=== PATIENT | male | born 1980 | race Caucasian/White ===

== ENCOUNTER 2019-02-13 18:05 | Emergency (ER) | payer BC ==
[~2019-02-13 18:05] MED LIST: Sodium Chloride 0.9% 10 ML Syringe FLUSH PRN
--- NOTE | 2019-02-13 18:06 | EDM.PDOC ---
<[place] - Last Filed: 02/13/19 18:45> ED HPI GENERAL MEDICAL PROBLEM - General Chief Complaint: Abdominal Pain Stated Complaint: RIGHT LOWER QUADRANT PAIN (PV) Time Seen by Provider: 02/13/19 18:05 Source of Information: Reports: Patient, Family (), RN, RN Notes Reviewed History Limitations: Reports: No Limitations - History of Present Illness INITIAL COMMENTS - FREE TEXT/NARRATIVE: Pt presents to ER from home by POV with c/o onset of mild middle to lower abdominal discomfort last evening. Pt states the pain returned today but was intermittent initially, but over the past few hours has localized to the RLQ and become severe. Pt reports feeling feverish, and nauseated. Denies Hx of abdominal surgeries. No relevant PMHx. Denies diarrhea, constipation, dysuria, hematuria, flank pain, or radiating pain. Onset: Today, Gradual Duration: Constant, Getting Worse Location: Reports: Abdomen Quality: Reports: Ache Severity: Severe Improves with: Reports: None Worsens with: Reports: Movement Associated Symptoms: Reports: No Other Symptoms Right Upper Abdomen Pain Score (Numeric/FACES): 8 - Related Data Allergies Allergy/AdvReac Type Severity Reaction Status Date / Time No Known Allergies Allergy Verified 09/28/14 16:57 Past Medical History Musculoskeletal History: Reports: Other (See Below) (Rt elbow injury) Social & Family History - Family History Family Medical History: Noncontributory - Tobacco Use Smoking Status *Q: Current Every Day Smoker Tobacco Use Within Last Twelve Months: Cigarettes - Living Situation & Occupation Living situation: Reports: , with Family Occupation: Employed ED ROS GENERAL - Review of Systems Review Of Systems: ROS reveals no pertinent complaints other than HPI. ED EXAM, GI/ABD - Physical Exam Exam: See Below Exam Limited By: No Limitations General Appearance: Alert, Mild Distress (due to RLQ abdominal pain) Eyes: Bilateral: Normal Appearance (No scleral icterus) Nose: Normal Inspection Throat/Mouth: Normal Lips, Normal Voice, No Airway Compromise Head: Atraumatic, Normocephalic Neck: Normal Inspection Respiratory/Chest: No Respiratory Distress, Lungs Clear, Normal Breath Sounds, No Accessory Muscle Use, Chest Non-Tender Cardiovascular: Regular Rate, Rhythm GI/Abdominal Exam: Normal Bowel Sounds, Soft, No Distention, Guarding, Rebound ( RLQ), Tender (Acutely tender to palpation at RLQ). No: Rigid (Male) Exam: Deferred Rectal (Males) Exam: Deferred Extremities: Normal Inspection Neurological: Alert, Oriented, No Motor/Sensory Deficits Psychiatric: Normal Mood Skin Exam: Warm, Dry, Intact, Normal Color, No Rash Course - Vital Signs Last Recorded V/S: Last Vital Signs Temp 37.4 C 02/13/19 18:15 Pulse 100 02/13/19 18:15 Resp 18 02/13/19 18:15 BP 133/68 02/13/19 18:15 Pulse Ox 100 02/13/19 18:15 - Orders/Labs/Meds Orders: Active Orders 24 hr Category Date Time Status Peripheral IV Care [RC] . DIRECTED Care 02/13/19 18:02 Active Abdomen Pelvis w Cont [CT] Stat Exams 02/13/19 18:43 Taken UA RFX JARRET AND CULT IF INDIC [URIN] Stat Lab 02/13/19 18:02 Ordered Sodium Chloride 0.9% [Saline Flush] Med 02/13/19 18:02 Active 10 ml FLUSH ASDIRECTED PRN Peripheral IV Insertion Adult [OM.PC] Stat Oth 02/13/19 18:02 Ordered Medication Orders Sodium Chloride (Saline Flush) 10 ml FLUSH ASDIRECTED PRN PRN Reason: Keep Vein Open Last Admin: 02/13/19 19:37 Dose: 10 ml Labs: Laboratory Tests 02/13/19 02/13/19 Range/Units 18:11 18:11 WBC 16.9 H (5.0-10.0) 10^3/uL RBC 5.00 (4.6-6.2) 10^6/uL Hgb 15.4 (14.0-18.0) g/dL Hct 44.5 (40.0-54.0) % MCV 89.0 (80-100) fL MCH 30.8 (27.0-34.0) pg MCHC 34.6 (33.0-35.0) g/dL Plt Count 276 (150-450) 10^3/uL Neut % (Auto) 82.1 H (42.2-75.2) % Lymph % (Auto) 11.1 L (20.5-50.1) % [place] % (Auto) 5.9 (2-8) % Eos % (Auto) 0.8 L (1.0-3.0) % Baso % (Auto) 0.1 (0.0-1.0) % Sodium 138 (135-145) mmol/L Potassium 3.7 (3.6-5.0) mmol/L Chloride 100 L (101-111) mmol/L Carbon Dioxide 28.0 (21.0-31.0) mmol/L Anion Gap 13.7 BUN 8 (7-18) mg/dL Creatinine 0.8 (0.6-1.3) mg/dL Est Cr Clr Drug Dosing 126.43 mL/min Estimated GFR (MDRD) > 60 BUN/Creatinine Ratio 10.00 Glucose 111 H (74-105) mg/dL Calcium 9.1 (8.4-10.2) mg/dl Total Bilirubin 0.6 (0.2-1.0) mg/dL AST 21 (10-42) IU/L ALT 21 (10-60) IU/L Alkaline Phosphatase 66 (42-121) IU/L Total Protein 7.2 (6.7-8.2) g/dl Albumin 4.3 (3.2-5.5) g/dl Globulin 2.9 Albumin/Globulin Ratio 1.48 Amylase 27 L (28-100) U/L Lipase 24 (22-51) U/L Meds: Medications Generic Name Dose Route Start Last Admin Trade Name Freq PRN Reason Stop Dose Admin Sodium Chloride 10 ml 02/13/19 18:02 02/13/19 19:37 Saline Flush FLUSH 10 ml ASDIRECTED PRN Administration Keep Vein Open Discontinued Medications Generic Name Dose Route Start Last Admin Trade Name Freelise PRN Reason Stop Dose Admin Hydromorphone HCl 1 mg 02/13/19 18:15 02/13/19 18:43 Dilaudid IVPUSH 02/13/19 18:16 1 mg ONETIME ONE Administration Hydromorphone HCl 0.5 mg 02/13/19 20:12 02/13/19 20:19 Dilaudid IVPUSH 02/13/19 20:13 0.5 mg ONETIME ONE Administration Sodium Chloride 1,000 mls @ 999 mls/hr 02/13/19 18:15 02/13/19 19:33 Normal Saline IV 02/13/19 19:15 999 mls/hr .BOLUS ONE Administration Piperacillin Sod/Tazobactam 100 mls @ 200 mls/hr 02/13/19 18:31 02/13/19 18: 47 Sod 3.375 gm/ Sodium Chloride IV 02/13/19 19:00 200 mls/hr ONETIME ONE Administration Iopamidol 75 ml 02/13/19 18:17 02/13/19 18:46 Isovue-300 (61%) IVPUSH 02/13/19 18:18 75 ml ONETIME ONE Administration Ondansetron HCl 4 mg 02/13/19 18:15 02/13/19 18:43 Zofran IV 02/13/19 18:16 4 mg ONETIME ONE Administration - Re-Assessments/Exams Free Text/Narrative Re-Assessment/Exam: 02/13/19 19:00 Care of pt transferred to Dr. Munoz at 1900HR shift change with CT Abd/Pelvis w/ IV contrast pending. Departure - Departure Disposition: DC/Tfer to [facility] Clinical Impression: Appendicitis Qualifiers: Appendicitis type: acute appendicitis Acute appendicitis type: with localized peritonitis Appendicitis gangrene presence: without gangrene Appendicitis perforation presence: without perforation Appendicitis abscess presence: without abscess Qualified Code(s): K35.30 - Acute appendicitis with localized peritonitis, without perforation or gangrene - Discharge Information Forms: Interfacility Transfer EMTALA <Nick Munoz - Last Filed: 02/13/19 20:37> Course - Re-Assessments/Exams Free Text/Narrative Re-Assessment/Exam: 02/13/19 20:35 case discussed with [place] surgeon and Dr Ordonez kindly accepted pt. Departure - Departure Time of Disposition: 20:37 Condition: Good
[2019-02-13] MEDS ORDERED: Sodium Chloride 0.9% 1,000 ML IV ONE (18:15)
[2019-02-13] MEDS ORDERED: Ondansetron 4 MG/2 ML SDV IV ONE (18:15)
[2019-02-13] MEDS ORDERED: HYDROmorphone 1 MG/ML Syringe IVPUSH ONE ×4 (18:15→21:44)
[2019-02-13] MEDS ORDERED: Iopamidol 612 MG/ML 75 ML Bottle IVPUSH ONE (18:17)
[2019-02-13] MEDS ORDERED: Piperacillin/Tazobactam 3.375 GM in Sodium Chloride 0.9% 100 ML IV ONE (18:31)
[2019-02-13 18:36] LABS: ANION GAP 13.7; CHLORIDE,CL 100 mmol/L (101-111); SODIUM,NA 138 mmol/L (135-145)
[2019-02-13] MEDS ORDERED: WATER FOR INJ IV ONE (21:33)
[2019-02-13] MEDS ORDERED: VANCOMYCIN IV ONE (21:33)
[2019-02-13] MEDS ORDERED: Metoclopramide 10 MG/2 ML SDV IVPUSH ONE (21:33)
[2019-02-13] MEDS ORDERED: Vancomycin 1 GM SDV ONE (21:42)
[2019-02-13] MEDS ORDERED: Sodium Chloride 0.9% 1,000 ML IV SCH (21:45)
== END 2019-02-13 22:39 ==
LOC: DL.ED 18:05
DX: K35.30 Acute appendicitis with localized peritonitis, without perforation or gangrene (principal); F17.210 Nicotine dependence, cigarettes, uncomplicated
CPT/HCPCS: 36415; 74177; 80053; 82150; 83690; 85025; 96361; 96365; 96367; 96375; 96376; 99285; J1170; J2405; J2543; J2765; J3370; J7030; J7050; Q9967

== ENCOUNTER 2021-05-16 21:49 | Emergency (ER) | payer BC, OTHER ==
[2021-05-16] MEDS ORDERED: Lidocaine 1% 30 ML SDV INJECT ONE (22:57)
[2021-05-16] MEDS ORDERED: Bacitracin Oint 1 GM U/D Packet ONE (23:20)
[2021-05-16] MEDS ORDERED: Bacitracin Oint 1 GM U/D Packet TOP ONE (23:26)
== END 2021-05-16 23:32 | disposition home or self-care (01) ==
LOC: DL.ED 21:49
DX: S61.012A Laceration without foreign body of left thumb without damage to nail, initial encounter (principal); Z91.030 Bee allergy status; Z88.8 Allergy status to other drugs, medicaments and biological substances; W26.0XXA Contact with knife, initial encounter
CPT/HCPCS: 12001; 99282-25

== ENCOUNTER 2022-05-07 19:04 | Emergency (ER) | payer BC, OTHER ==
[2022-05-07] MEDS ORDERED: Cyclobenzaprine 10 MG Tab PO ONE (19:05)
[2022-05-07] MEDS ORDERED: methylPREDNISolone Sodium Succinate 125 MG/2 ML SDV IVPUSH ONE (20:11)
== END 2022-05-07 20:40 | disposition home or self-care (01) ==
LOC: DL.ED 19:04
DX: M54.2 Cervicalgia (principal); R20.2 Paresthesia of skin; Z91.030 Bee allergy status; Z88.8 Allergy status to other drugs, medicaments and biological substances; Z87.891 Personal history of nicotine dependence
CPT/HCPCS: 70450; 72125; 72128; 96374; 99283; A9270; J2930